=== PATIENT | male | born 1965 | race Caucasian/White ===

== ENCOUNTER 2018-02-16 09:22 | Emergency (ER) | payer BC ==
[~2018-02-16] VITALS: Ht 182.9 cm; Wt 81.6 kg
--- OUTSIDE RECORDS SUMMARY | 2018-02-16 09:24 | XMS REPORT | Summary of Care ---
Author Author [facility] Organization [facility] Address Unknown Phone Unavailable Encounter LEANNE Pineda(GLORIA) [id number] Date(s): 07/21/15 - 07/21/15 [facility] [address] [place] [address]- [phone] Discharge Diagnosis: Right flank pain Discharge Diagnosis: Ureterolithiasis Discharge Disposition: Home Attending Physician: Suzanne Azar MD Vital Signs 1 2 3 Most recent to oldest [Reference Range]: 182.88 cm (07/21/15 6:10 AM) Height 98.5 DegF (07/21/15 9:08 AM) 98 DegF (07/21/15 6:10 AM) Temperature Oral [96.4-99.1 DegF] 136/81 mmHg (07/21/15 9:08 AM) 127/87 mmHg (07/21/15 7:56 AM) 119/88 mmHg (07/21/15 7:21 AM) Blood Pressure [90-140/60-90 mmHg] 13 BRMIN *LOW* (07/21/15 9:08 AM) 16 BRMIN (07/21/15 8:43 AM) 11 BRMIN *LOW* (07/21/15 7:56 AM) Respiratory Rate [14-20 BRMIN] 92 bpm (07/21/15 6:10 AM) Peripheral Pulse Rate [60-100 bpm] 77.273 kg (07/21/15 6:10 AM) Weight 23.1 m2 (07/21/15 6:10 AM) Body Mass Index Problem List No data available for this section Allergies, Adverse Reactions, Alerts Substance Reaction Severity Status Codeine Sulfate Active Medications ibuprofen 600 mg oral tablet 600 mg=1 tab, PO, Q6H, PRN Pain, take with food, # 30 tab, 0 Refill(s) Start Date: 07/21/15 Status: Ordered ketOROLAC 30 mg, Route: IVP, Drug form: INJ, ONCE, Dosing Weight 77.273, kg, Priority: STAT, Start date: 07/21/15 6:23:00, Stop date: 07/21/15 6:23:00 Start Date: 07/21/15 Stop Date: 07/21/15 Status: Discontinued morphine Sulfate 4 mg, 1 mL, Route: IVP, Drug form: INJ, ONCE, Dosing Weight 77.273, kg, Priority : STAT, Start date: 07/21/15 6:24:00, Stop date: 07/21/15 6:24:00 Notes: (Same as:MORPhine Sulfate) Start Date: 07/21/15 Stop Date: 07/21/15 Status: Completed ondansetron 4 mg, 2 mL, Route: IVP, Drug form: INJ, ONCE, Dosing Weight 77.273, kg, Priority : STAT, Start date: 07/21/15 6:23:00, Stop date: 07/21/15 6:23:00 Notes: (Same as: Laura) MEDICATION WASTE Product Size: 4 mgProduct Wasted: ___ mg Start Date: 07/21/15 Stop Date: 07/21/15 Status: Completed ondansetron 4 mg oral tablet, disintegrating 4 mg=1 tab, PO, TID, PRN Nausea / Vomiting, Dissolve tab under tongue, X 3 day, # 10 tab, 0 Refill(s) Start Date: 07/21/15 Stop Date: 07/24/15 Status: Ordered Sodium Chloride 0.9% (Bolus) IV 500 mL, 500 ml/hr, Infuse Over: 1 hr, Route: IV, 500, Drug form: INJ, ONCE, Priority: STAT, Dosing Weight 77.273 kg, Start date: 07/21/15 6:23:00, Duration : 1 doses or times, Stop date: 07/21/15 6:23:00 Start Date: 07/21/15 Stop Date: 07/21/15 Status: Completed Results ELECTROLYTES Most recent to 1 oldest [Reference Range]: Sodium Lvl [135-145 143 mEq/L mEq/L] (07/21/15 6:43 AM) Potassium Lvl 3.9 mEq/L [3.5-5.1 mEq/L] (07/21/15 6:43 AM) Chloride Lvl [95-109 110 mEq/L mEq/L] *HI* (07/21/15 6:43 AM) CO2 [24-32 mEq/L] 25 mEq/L (07/21/15 6:43 AM) AGAP [10.0-20.0 11.9 mEq/L mEq/L] (07/21/15 6:43 AM) CHEM PANEL Most recent to 1 oldest [Reference Range]: Creatinine Lvl 0.95 mg/dL [0.50-1.40 mg/dL] (07/21/15 6:43 AM) eGFR 92 mL/min/1.73m2 1 *NA* (07/21/15 6:43 AM) BUN [7-22 mg/dL] 15 mg/dL (07/21/15 6:43 AM) B/C Ratio [6-25] 16 (07/21/15 6:43 AM) Glucose Lvl [70-99 108 mg/dL mg/dL] *HI* (07/21/15 6:43 AM) Total Protein 6.9 g/dL [6.4-8.4 g/dL] (07/21/15 6:43 AM) Albumin Lvl [3.5-5.0 4.2 g/dL g/dL] (07/21/15 6:43 AM) Globulin [2.0-4.0 2.7 g/dL g/dL] (07/21/15 6:43 AM) A/G Ratio [0.7-1.6] 1.6 (07/21/15 6:43 AM) Calcium Lvl 9.4 mg/dL [8.5-10.5 mg/dL] (07/21/15 6:43 AM) ALT [0-65 unit/L] 36 unit/L (07/21/15 6:43 AM) AST [0-37 unit/L] 26 unit/L (07/21/15 6:43 AM) Alk Phos [39-136 84 unit/L unit/L] (07/21/15 6:43 AM) Bili Total [0.2-1.3 0.8 mg/dL mg/dL] (07/21/15 6:43 AM) 1Result Comment: The eGFR is calculated using the CKD-EPI formula. In most young , healthy individuals the eGFR will be >90 mL/min/1.73m2. The eGFR declines with age. An eGFR of 60-89 may be normal in some populations, particularly the elderly, for whom the CKD-EPI formula has not been extensively validated. Use of the eGFR is not recommended in the following populations: Individuals with unstable creatinine concentrations, including patients and those with serious co-morbid conditions. Patients with extremes in muscle mass or diet. The data above are obtained from the National Kidney Disease Education Program ( NKDEP) which additionally recommends that when the eGFR is used in patients with extremes of body mass index for purposes of drug dosing, the eGFR should be multiplied by the estimated BMI. URINE AND STOOL Most recent to 1 oldest [Reference Range]: UA Turbidity [Clear] Clear (07/21/15 6:43 AM) UA Color [Yellow] Yellow *NA* (07/21/15 6:43 AM) UA pH [5.0-8.0] 6.0 (07/21/15 6:43 AM) UA Spec Grav 1.025 [<=1.030] (07/21/15 6:43 AM) UA Glucose Negative [Negative] (07/21/15 6:43 AM) UA Blood [Negative] Large *ABN* (07/21/15 6:43 AM) UA Ketones Negative [Negative] *NA* (07/21/15 6:43 AM) UA Protein Negative [Negative] (07/21/15 6:43 AM) UA Urobilinogen 0.2 EU/dL [0.1-1.0 EU/dL] (07/21/15 6:43 AM) UA Bili [Negative] Negative *NA* (07/21/15 6:43 AM) UA Leuk Est Negative [Negative] (07/21/15 6:43 AM) UA Nitrite Negative [Negative] (07/21/15 6:43 AM) UA WBC [None Seen 0-2 /HPF /HPF] (07/21/15 6:43 AM) UA RBC [0-2 /HPF] 6-10 /HPF *ABN* (07/21/15 6:43 AM) UA Bacteria [None None Seen Seen] (07/21/15 6:43 AM) UA Sq Epi [Few] None Seen (07/21/15 6:43 AM) UA Mucus [None Seen] None Seen (07/21/15 6:43 AM) Micro? Performed (07/21/15 6:43 AM) HEMATOLOGY Most recent to 1 oldest [Reference Range]: WBC [3.7-10.4 K/CMM] 9.2 K/CMM (07/21/15 7:52 AM) RBC [4.70-6.10 4.66 M/CMM M/CMM] *LOW* (07/21/15 7:52 AM) Hgb [14.0-18.0 g/dL] 14.5 g/dL (07/21/15 7:52 AM) Hct [42.0-54.0 %] 43.6 % (07/21/15 7:52 AM) MCV [80.0-94.0 fL] 93.6 fL (07/21/15 7:52 AM) MCH [27.0-31.0 pg] 31.1 pg *HI* (07/21/15 7:52 AM) MCHC [32.0-36.0 33.2 g/dL g/dL] (07/21/15 7:52 AM) RDW [11.5-14.5 %] 13.0 % (07/21/15 7:52 AM) Platelet [133-450 177 K/CMM K/CMM] (07/21/15 7:52 AM) MPV [7.4-10.4 fL] 8.1 fL (07/21/15 7:52 AM) Segs [45.0-75.0 %] 80.5 % *HI* (07/21/15 7:52 AM) Lymphocytes 15.8 % [20.0-40.0 %] *LOW* (07/21/15 7:52 AM) Monocytes [2.0-12.0 3.0 % %] (07/21/15 7:52 AM) Eosinophils [0.0-4.0 0.7 % %] (07/21/15 7:52 AM) Basophils [0.0-1.0 0.0 % %] (07/21/15 7:52 AM) Segs-Bands # 7.4 K/CMM [1.5-8.1 K/CMM] (07/21/15 7:52 AM) Lymphocytes # 1.5 K/CMM [1.0-5.5 K/CMM] (07/21/15 7:52 AM) Monocytes # [0.0-0.8 0.3 K/CMM K/CMM] (07/21/15 7:52 AM) Eosinophils # 0.1 K/CMM [0.0-0.5 K/CMM] (07/21/15 7:52 AM) Basophils # [0.0-0.2 0.0 K/CMM K/CMM] (07/21/15 7:52 AM) RBC Morph Normal (07/21/15 7:52 AM) Plt Morph Normal (07/21/15 7:52 AM) PT [12.0-14.7 14.4 seconds seconds] (07/21/15 6:43 AM) INR [0.85-1.17] 1.09 (07/21/15 6:43 AM) Immunizations No data available for this section Procedures No data available for this section Social History Social History Type Response Smoking Status Never smoker; Exposure to Tobacco Smoke None; Cigarette Smoking Last 365 Days No; Reg Smoking Cessation Counseling No Assessment and Plan No data available for this section
--- OUTSIDE RECORDS SUMMARY | 2018-02-16 09:24 | XMS REPORT | Summary of Care ---
Author Author [facility] Organization [facility] Address Unknown Phone Unavailable Encounter LEANNE Pineda([place]ORIA) [id number] Date(s): 02/18/16 - 02/18/16 [facility] [address] [place] [address]- Discharge Diagnosis: Gallbladder sludge Discharge Disposition: Home Attending Physician: Aminata Husain MD Vital Signs 1 2 3 Most recent to oldest [Reference Range]: 182.88 cm (02/18/16 2:11 AM) Height 98.3 DegF (02/18/16 7:41 AM) 97.9 DegF (02/18/16 2:11 AM) Temperature Oral [96.4-99.1 DegF] 143/92 mmHg *HI* (02/18/16 7:41 AM) 96/44 mmHg (02/18/16 7:25 AM) 94/45 mmHg (02/18/16 7:06 AM) Blood Pressure [90-140/60-90 mmHg] 18 BRMIN (02/18/16 7:41 AM) 23 BRMIN *HI* (02/18/16 7:25 AM) 24 BRMIN *HI* (02/18/16 7:06 AM) Respiratory Rate [14-20 BRMIN] 66 bpm (02/18/16 2:11 AM) Peripheral Pulse Rate [60-100 bpm] 79.545 kg (02/18/16 2:11 AM) Weight 23.78 m2 (02/18/16 2:11 AM) Body Mass Index Problem List No data available for this section Allergies, Adverse Reactions, Alerts Substance Reaction Severity Status Codeine Sulfate Active Medications famotidine 20 mg, 2 mL, Route: IVP, Drug form: INJ, ONCE, Dosing Weight 79.545, kg, Priority: STAT, Start date: 02/18/16 2:22:00 CDT, Stop date: 02/18/16 2:22:00 CDT Notes: (Same as: Pepcid)Can be dilute in 5-10cc NS IVP: Slow IV push over at least 2 minutes. Start Date: 02/18/16 Stop Date: 02/18/16 Status: Completed GI cocktail 30 mL, Route: PO, Dosing Weight 79.545, kg, ONCE, STAT, Start date: 02/18/16 5: 10:00 CDT, Stop date: 02/18/16 5:10:00 CDT Start Date: 02/18/16 Stop Date: 02/18/16 Status: Completed morphine Sulfate 4 mg, 1 mL, Route: IVP, Drug form: INJ, ONCE, Dosing Weight 79.545, kg, Priority : STAT, Start date: 02/18/16 2:22:00 CDT, Stop date: 02/18/16 2:22:00 CDT Notes: (Same as:MORPhine Sulfate) Start Date: 02/18/16 Stop Date: 02/18/16 Status: Discontinued ondansetron 4 mg, 2 mL, Route: IVP, Drug form: INJ, ONCE, Dosing Weight 79.545, kg, Priority : STAT, Start date: 02/18/16 2:22:00 CDT, Stop date: 02/18/16 2:22:00 CDT Notes: (Same as: Laura) MEDICATION WASTE Product Size: 4 mgProduct Wasted: ___ mg Start Date: 02/18/16 Stop Date: 02/18/16 Status: Completed Pepcid 20 mg oral tablet 20 mg=1 tab, PO, BID, # 60 tab, 0 Refill(s) Start Date: 02/18/16 Status: Ordered Saline Flush 0.9% 10 mL, Route: IVP, Drug Form: INJ, Dosing Weight 79.545, kg, PRN, PRN Line Flush , Start date: 02/18/16 2:22:00 CDT, Duration: 30 day, Stop date: 03/19/16 2:21: 00 CDT Notes: Same as: BD Posiflush Sterile Start Date: 02/18/16 Stop Date: 02/18/16 Status: Discontinued tramadol 50 mg oral tablet 50 mg=1 tab, PO, BID, X 15 day, # 30 tab, 0 Refill(s) Start Date: 02/18/16 Stop Date: 03/04/16 Status: Ordered Zofran 4 mg oral tablet 4 mg=1 tab, PO, Q6H, PRN Nausea/Vomiting, X 8 day, # 30 tab, 0 Refill(s) Start Date: 02/18/16 Stop Date: 02/26/16 Status: Ordered Results ELECTROLYTES Most recent to 1 oldest [Reference Range]: Sodium Lvl [135-145 142 mEq/L mEq/L] (02/18/16 4:12 AM) Potassium Lvl 3.8 mEq/L [3.5-5.1 mEq/L] (02/18/16 4:12 AM) Chloride Lvl [95-109 109 mEq/L mEq/L] (02/18/16 4:12 AM) CO2 [24-32 mEq/L] 26 mEq/L (02/18/16 4:12 AM) AGAP [10.0-20.0 10.8 mEq/L mEq/L] (02/18/16 4:12 AM) CHEM PANEL Most recent to 1 oldest [Reference Range]: Creatinine Lvl 0.89 mg/dL [0.50-1.40 mg/dL] (02/18/16 4:12 AM) eGFR 99 mL/min/1.73m2 1 *NA* (02/18/16 4:12 AM) BUN [7-22 mg/dL] 12 mg/dL (02/18/16 4:12 AM) B/C Ratio [6-25] 13 (02/18/16 4:12 AM) Glucose Lvl [70-99 99 mg/dL mg/dL] (02/18/16 4:12 AM) Total Protein 7.1 g/dL [6.4-8.4 g/dL] (02/18/16 4:12 AM) Albumin Lvl [3.5-5.0 4.1 g/dL g/dL] (02/18/16 4:12 AM) Globulin [2.0-4.0 3.0 g/dL g/dL] (02/18/16 4:12 AM) A/G Ratio [0.7-1.6] 1.4 (02/18/16 4:12 AM) Calcium Lvl 9.8 mg/dL [8.5-10.5 mg/dL] (02/18/16 4:12 AM) ALT [0-65 unit/L] 36 unit/L (02/18/16 4:12 AM) AST [0-37 unit/L] 18 unit/L (02/18/16 4:12 AM) Alk Phos [39-136 95 unit/L unit/L] (02/18/16 4:12 AM) Bili Total [0.2-1.3 0.7 mg/dL mg/dL] (02/18/16 4:12 AM) Lipase Lvl [73-393 199 unit/L unit/L] (02/18/16 4:12 AM) 1Result Comment: The eGFR is calculated [...] oldest [Reference Range]: UA Turbidity [Clear] Clear (02/18/16 4:12 AM) UA Color [Yellow] Yellow *NA* (02/18/16 4:12 AM) UA pH [5.0-8.0] 5.5 (02/18/16 4:12 AM) UA Spec Grav 1.010 [<=1.030] (02/18/16 4:12 AM) UA Glucose [Negative Negative mg/dL mg/dL] (02/18/16 4:12 AM) UA Blood [Negative] Negative (02/18/16 4:12 AM) UA Ketones [Negative Negative mg/dL mg/dL] *NA* (02/18/16 4:12 AM) UA Protein [Negative Negative mg/dL mg/dL] (02/18/16 4:12 AM) UA Urobilinogen 0.2 EU/dL [0.1-1.0 EU/dL] (02/18/16 4:12 AM) UA Bili [Negative] Negative *NA* (02/18/16 4:12 AM) UA Leuk Est Negative [Negative] (02/18/16 4:12 AM) UA Nitrite Negative [Negative] (02/18/16 4:12 AM) UA WBC [None Seen 0-2 /HPF /HPF] (02/18/16 4:12 AM) UA RBC [0-2 /HPF] 0-2 /HPF (02/18/16 4:12 AM) UA Bacteria [None None Seen Seen] (02/18/16 4:12 AM) UA Sq Epi [Few /LPF] Rare /LPF (02/18/16 4:12 AM) Micro? Performed (02/18/16 4:12 AM) HEMATOLOGY Most recent to 1 oldest [Reference Range]: WBC [3.7-10.4 K/CMM] 8.0 K/CMM (02/18/16 4:12 AM) RBC [4.70-6.10 5.13 M/CMM M/CMM] (02/18/16 4:12 AM) Hgb [14.0-18.0 g/dL] 16.3 g/dL (02/18/16 4:12 AM) Hct [42.0-54.0 %] 46.5 % (02/18/16 4:12 AM) MCV [80.0-94.0 fL] 90.6 fL (02/18/16 4:12 AM) MCH [27.0-31.0 pg] 31.7 pg *HI* (02/18/16 4:12 AM) MCHC [32.0-36.0 34.9 g/dL g/dL] (02/18/16 4:12 AM) RDW [11.5-14.5 %] 12.9 % (02/18/16 4:12 AM) Platelet [133-450 197 K/CMM K/CMM] (02/18/16 4:12 AM) MPV [7.4-10.4 fL] 8.7 fL (02/18/16 4:12 AM) Segs [45.0-75.0 %] 68.8 % (02/18/16 4:12 AM) Lymphocytes 22.1 % [20.0-40.0 %] (02/18/16 4:12 AM) Monocytes [2.0-12.0 7.3 % %] (02/18/16 4:12 AM) Eosinophils [0.0-4.0 1.3 % %] (02/18/16 4:12 AM) Basophils [0.0-1.0 0.5 % %] (02/18/16 4:12 AM) Segs-Bands # 5.5 K/CMM [1.5-8.1 K/CMM] (02/18/16 4:12 AM) Lymphocytes # 1.8 K/CMM [1.0-5.5 K/CMM] (02/18/16 4:12 AM) Monocytes # [0.0-0.8 0.6 K/CMM K/CMM] (02/18/16 4:12 AM) Eosinophils # 0.1 K/CMM [0.0-0.5 K/CMM] (02/18/16 4:12 AM) Immunizations No data available for this section Procedures No data available for this section Social History Social History Type Response Smoking Status Never smoker; Exposure to Tobacco Smoke None; Cigarette Smoking Last 365 Days No; Reg Smoking Cessation Counseling No Assessment and Plan No data available for this section
[2018-02-16] MEDS ORDERED: METHYLPREDNISOLONE SOD SUCC 125 MG/2ML VIAL IM ONE (09:45)
== END 2018-02-16 09:49 | disposition home or self-care (01) ==
LOC: ER 09:22 → FSED 09:49
DX: L25.5 Unspecified contact dermatitis due to plants, except food (principal)
CPT/HCPCS: 99283; J2930

== ENCOUNTER 2018-02-23 09:10 | Emergency (ER) | payer BC ==
[~2018-02-23] VITALS: Ht 182.9 cm; Wt 81.6 kg
--- OUTSIDE RECORDS SUMMARY | 2018-02-23 09:14 | XMS REPORT | Continuity of Care Document ---
Author Author [facility] Organization [facility] Address [address] [place] [address] Phone Unavailable Care Team Providers Care Bending Roll Hand Name Role Phone NO, PCP PCP Unavailable Advance Directives No advance directive information available. Problems No problem information available. Medications No medication information available. Social History Smoking Status Start Date Stop Date Never Smoker Hospital Discharge Instructions No hospital discharge instruction information available. Plan of Care Discharge Date 02/16/18 9:49am Disposition HOME, SELF-CARE Condition at Discharge Stable Instructions/Education Provided Rash - Nonspecific Forms Provided Work/School Excuse Prescriptions See Medication Section Referrals LEEROY LAIRD MD Address: [address] [place] [address] [address] [place] [address] Additional Instructions/Education TAKE PRESCRIPTIONS DIRECTED. OVER THE COUNTER CALAMINE LOTION TO AFFECTED AREAD THREE TIMES DAILY OR NEEDED. BENADRYL OVER THE COUNTER FOLLOW LABEL INSTRUCTIONS. FOLLOW UP WITH YOUR PRIMARY DOCTOR THIS WEEK. Functional Status No functional status information available. Allergies, Adverse Reactions, Alerts No known allergies. Immunizations No immunization information available. Vital Signs Acute Vital Signs Vital Response Date/Time Height 6 ft 0 in 02/16/2018 9:31am Weight 180 lb 02/16/2018 9:31am Body Mass Index 24.4 kg/m^2 02/16/2018 9:31am Results No relevant diagnostic test, laboratory data and/or discharge summary information available. Procedures No procedure information available. Encounters Encounter Location Arrival/Admit Date Discharge/Depart Date Attending Provider Departed Emergency Room [facility] 02/16/18 9:22am 9:49am SAUL SIMPSON MD
[2018-02-23] MEDS ORDERED: CEFTRIAXONE SOD 1 GM VIAL IM ONE (09:30)
[2018-02-23] MEDS ORDERED: METHYLPREDNISOLONE SOD SUCC 125 MG/2ML VIAL IM ONE (09:30)
[2018-02-23 09:40] VITALS: BP 154/97
== END 2018-02-23 09:48 | disposition home or self-care (01) ==
LOC: FSED 09:10
DX: L25.5 Unspecified contact dermatitis due to plants, except food (principal); T78.40XA Allergy, unspecified, initial encounter
CPT/HCPCS: 96372; 99283; J0696; J2930